=== PATIENT | male | born 1975 | race Caucasian/White ===

== ENCOUNTER 2017-01-29 15:13 | Emergency (ER) | payer OTHER ==
--- OUTSIDE RECORDS SUMMARY | 2017-01-29 16:11 | XMS REPORT | Continuity of Care Document ---
:1975 Author Organization [facility] ([facility]) Address [address] [place] [address] Phone [phone] Care Team Providers Name Role Phone Trista Israel Primary Care Provider [phone] Source Comments This disclosure is being made pursuant to the Care Everywhere program, applicable federal and state laws, and may not contain all informaitonavailable regarding this patient.[facility] ([facility]) Active Allergies and Adverse Reactions Allergen Noted Date Severity Reactions Comments Amlodipine-Benazepril 11/24/2011 Urticaria (Hives) Current Medications Prescription Sig. Disp. Refills Start Date End Date Status enalapril-hydrochlorthia Take 1 Tab by mouth Active zide 10-25 mg per tablet daily. CETIRIZINE Take by mouth Active HCL/PSEUDOEPHEDRINE daily. (ZYRTEC-D PO) traMADol 50 mg tablet Take 1 Tab by mouth 60 Tab 0 05/01/2013 Active every 6 hours as needed for Pain. Indications: PAIN LORazepam 2 mg tablet Take 2 mg by mouth Active at bedtime as needed. disulfiram (ANTABUSE) Take 250 mg by Active 250 mg tablet mouth daily. DULOXETINE HCL (CYMBALTA Take by mouth Active PO) daily. meloxicam 7.5 mg tablet Take 1 Tab by mouth 60 Tab 11 11/13/2013 Active 2 times daily. Indications: Pain Active Problems Problem Noted Date S/P shoulder surgery 11/15/2013 Poison brenda dermatitis 03/15/2013 Last Assessment & Plan: Patient reports a recent outbreak of poison brenda on his legs below the knees. He is being treated with prednisone taper, and has 10 more days before he is off completely. Surgery is scheduled for April 05, 2013. Shoulder pain, right 03/14/2013 Last Assessment & Plan: 80% of his right anterior shoulder pain was relieved with a injection of local anesthetic and corticosteroid into the biceps tendon sheath. Patient has had 4 prior surgeries and has a biceps tenodesis. We discussed biceps tenotomy with potential for cramping in the arm for 6-12 weeks after surgery, as was a Michael deformity of the upper arm. However there is usually a faster return to work compared with biceps tenodesis. Patient verbalizes understanding, reports he has been painful with his current biceps tenodesis, and would like to proceed with a biceps tenotomy. Depression 11/24/2011 Hypertension 11/24/2011 Osteoarthritis 11/24/2011 Sleep apnea 11/24/2011 Social History Tobacco Use Types Packs/Day Years Used Date Never Smoker Smokeless Tobacco: Never Used Tobacco Cessation:Counseling Given: Yes Comments:smokes marijuana daily: 3Gms per week Alcohol Use Drinks/Week oz/Week Comments Yes 20 Cans of beer 10.0 has been to rehab. not currently Last Filed Vital Signs Vital Sign Reading Time Taken Blood Pressure 139/90 04/05/2013 1:50 PM CDT Pulse 67 04/05/2013 5:55 AM CDT Temperature 36.4 C (97.5 F) 04/05/2013 12:00 PM CDT Respiratory Rate 16 04/05/2013 5:55 AM CDT Height 1.753 m (5' 9") 03/28/2013 1:06 PM CDT Weight 103.057 kg (227 lb 3.2 oz) 03/28/2013 1:06 PM CDT Body Mass Index 33.54 03/28/2013 1:06 PM CDT Oxygen Saturation 97% 04/05/2013 12:45 PM CDT Plan of Care Health Maintenance Due Date Last Done Comments Hepatitis B Vaccine (1 of 3 - Primary Series) 1975 Tdap Vaccine 1986 Lipid Disorder Screening 1993 MMR Vaccine 1993 Td Vaccine 1993 Influenza Vaccine: Seasonal (#1) 03/16/2016 Results from Last 3 Months Not on file
[2017-01-29] MEDS ORDERED: HYDROmorphone HCL 1 MG/ML DISP.SYRIN IV ONE (16:24)
[2017-01-29] MEDS ORDERED: HYDROmorphone HCL 1 MG/ML DISP.SYRIN ONE (16:35)
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
[2017-01-29] MEDS ORDERED: ONDANSETRON HCL/PF 2 MG/ML VIAL ONE (16:41)
[2017-01-29] MEDS ORDERED: ONDANSETRON HCL/PF 2 MG/ML VIAL IV ONE (16:42)
[2017-01-29] MEDS ORDERED: NORMAL SALINE 1,000 ML IV ONE (17:07)
[2017-01-29 17:20] LABS: Hemoglobin 16.4 gm/dL (13.5-18.0); Mean Cell Volume 87.5 fl (78-100); Mean Corpuscular Hemoglobin 31.2 pg (27-31); Mean Corpuscular Hgb Conc 35.7 g/dl (32-36); Mean Platelet Volume 9.2 fl (6.0-9.5); Neutrophil # 9.2 K/mm3 (1.3-6.0); Neutrophil % 78.7 % (42-75.0); Platelet Count 242 K/mm3 (150-450); Red Blood Count 5.26 M/mm3 (4.7-6.0); Red Cell Distribution Width 11.9 % (11.5-14.0); White Blood Count 11.7 K/mm3 (4.0-10.5)
[2017-01-29 17:36] LABS: Albumin * 4.4 gm/dl (3.4-5.0); BUN/Creatinine Ratio 11.6 (9.0-21.6); Bilirubin, Total 0.2 mg/dL (0.0-1.1); Ca. Corrected For Albumin 8.9 mg/dL (8.4-10.2); Calcium * 9.5 mg/dL (7.9-10.9); Carbon Dioxide 27.3 mmol/L (24-32.6); Potassium 4.3 mmol/L (3.4-4.6); Total Protein 8.2 gm/dL (6.2-8.2)
[2017-01-29 18:09] VITALS: BP 162/111
== END 2017-01-29 17:53 | disposition short-term general hospital (02) ==
LOC: ER 15:13
DX: S04.51XA Injury of facial nerve, right side, initial encounter (principal); S01.81XA Laceration without foreign body of other part of head, initial encounter; Z87.891 Personal history of nicotine dependence; Y00.XXXA Assault by blunt object, initial encounter; Y92.007 Garden or yard of unspecified non-institutional (private) residence as the place of occurrence of the external cause
CPT/HCPCS: 36415; 70486; 80053; 85025; 96374; 96375; 99285; J2405

== ENCOUNTER 2017-03-10 05:47 | Emergency (ER) | payer OTHER ==
[2017-03-10] MEDS ORDERED: KETOROLAC TROMETHAMINE 30 MG/ML VIAL IV ONE (06:15)
[2017-03-10] MEDS ORDERED: NORMAL SALINE 1,000 ML IV ONE (06:15)
[2017-03-10] MEDS ORDERED: KETOROLAC TROMETHAMINE 30 MG/ML VIAL ONE (06:22)
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
[2017-03-10 06:34] LABS: Hemoglobin 15.5 gm/dL (13.5-18.0); Mean Cell Volume 86.8 fl (78-100); Mean Corpuscular Hemoglobin 30.6 pg (27-31); Mean Corpuscular Hgb Conc 35.2 g/dl (32-36); Mean Platelet Volume 9.2 fl (6.0-9.5); Neutrophil # 5.3 K/mm3 (1.3-6.0); Neutrophil % 68.8 % (42-75.0); Platelet Count 208 K/mm3 (150-450); Red Blood Count 5.07 M/mm3 (4.7-6.0); Red Cell Distribution Width 12.4 % (11.5-14.0); White Blood Count 7.6 K/mm3 (4.0-10.5)
[2017-03-10 06:46] LABS: Albumin * 3.9 gm/dl (3.4-5.0); Anion Gap 17.3 mmol/L (6.8-13.8); BUN/Creatinine Ratio 16.7 (9.0-21.6); Bilirubin, Total 0.3 mg/dL (0.0-1.1); Calcium * 9.2 mg/dL (7.9-10.9); Carbon Dioxide 22.8 mmol/L (24-32.6); Potassium 4.1 mmol/L (3.4-4.6); Total Protein 7.2 gm/dL (6.2-8.2)
[2017-03-10 06:52] VITALS: BP 143/108
[2017-03-10 07:00] LABS: Urine Bilirubin Negative (NEGATIVE); Urine Blood Negative /ul (NEGATIVE); Urine Ketone Negative (NEGATIVE); Urine Nitrite Negative (NEGATIVE); Urine Protein Negative (NEGATIVE); Urine Specific Gravity 1.015 SP.GR. (1.005-1.030); Urine Urobilinogen Normal (NORMAL)
[2017-03-10 07:13] LABS: Urine Appearance Clear; Urine Bacteria None Seen; Urine Color Yellow; Urine RBC TRACE /hpf (0-5); Urine WBC TRACE /hpf (0-5)
[2017-03-10] MEDS ORDERED: ORPHENADRINE CITRATE 30 MG/ML VIAL IM ONE (07:24)
[2017-03-10] MEDS ORDERED: ORPHENADRINE CITRATE 30 MG/ML VIAL ONE (07:26)
== END 2017-03-10 07:54 | disposition home or self-care (01) ==
LOC: ER 05:47
DX: M62.830 Muscle spasm of back (principal); S39.012A Strain of muscle, fascia and tendon of lower back, initial encounter

== ENCOUNTER 2017-03-11 06:39 | Day surgery (SDC) | payer OTHER ==
[~2017-03-11 06:39] MED LIST: RINGER'S SOLUTION,LACTATED 1,000 ML IV PRN; ceFAZolin SODIUM 1 GM VIAL IV PRN
[2017-03-11 06:47] VITALS: BP 137/85
[2017-03-11] MEDS ORDERED: RINGER'S SOLUTION,LACTATED 1,000 ML IV ONE (07:03)
--- NOTE | 2017-03-11 08:13 | PN ---
Progess Note - Interim Narrative: 03/11/17 08:11 Upon questioning the patient in pre-op, he admitted to smoking marijuana 1.5 hrs prior to arrival in pre-op. This raised the question of ability to consent to anesthesia. After discussing the case with the nurse rolling machine operator, we made the decision to reschedule the case for next Wednesday. Patient was counseled on being NPO and avoiding any drug use prior to surgery. He understands and wishes to proceed with surgery next Wednesday. Akhil Perea MD
== END 2017-03-11 06:40 | disposition home or self-care (01) ==
LOC: AMB 06:39
PROVIDERS: ATTEND Orthopaedic Surgery
DX: Z53.8 Procedure and treatment not carried out for other reasons (principal)

== ENCOUNTER 2017-03-16 06:42 | Day surgery (SDC) | payer OTHER ==
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
--- NOTE | 2017-03-16 11:51 | OR ---
Anesthesia Procedure Note - Anesthesia Procedure Note Date of Service: 03/16/17 Narrative: Vital Signs - Last Taken Temp 36.5 C 03/16/17 11:10 Pulse 76 03/16/17 11:20 Resp 16 03/16/17 11:20 BP 153/96 03/16/17 11:20 Pulse Ox 96 03/16/17 11:20 O2 Oxygen Delivery Method Room Air 03/16/17 11:39 ANESTHESIA PROCEDURE NOTE Date of Procedure: 03/16/2017. Time of procedure: 0750. Performed by: Jeanmarie Moreno CRNA Coal Briquette Machine Operator: None. Preprocedure diagnosis: Left shoulder subscapularis tear. Post procedure diagnosis: Same. Procedure: Left ultrasound guided interacalene nerve block for postoperative analgesia. Indications: The patient is a 42 -year-old male. Findings: See below. Details of the procedure: The tissue over the intended target site was cleansed with ChloraPrep. 1 ml Lidocaine 1 % was infiltrated to the skin and subcutaneous tissue. Under sterile technique and ultrasound guidance a 21-gauge block needle was inserted to the left brachial plexus nerve bundle between the anterior scalene and the middle scalene muscle. 40 mL's of 0.5% bupivacaine plus epinephrine 1 200,000 was injected after negative aspiration for blood. Spread of local anesthetic around the brachial plexus was observed throughout the injection with ultrasound. The needle was removed intact. No complications were noted. The images were retained in the Hospital medical database . EBL: Minimal. Fluids: N/A. Specimen: N/A. Post procedure condition: The patient tolerated the procedure well. No complications were noted. Thank you for this consultation. Jeanmarie Moreno CRNA
[2017-03-16] MEDS ORDERED: RINGER'S SOLUTION,LACTATED 1,000 ML IV ONE (12:28)
[2017-03-16 13:45] VITALS: BP 140/101
== END 2017-03-16 06:43 | disposition home or self-care (01) ==
LOC: AMB 06:42
PROVIDERS: ATTEND Orthopaedic Surgery
PROC: 0RBK4ZZ Excision of Left Shoulder Joint, Percutaneous Endoscopic Approach (ICD-10-PCS; 2017-03-16)
PROC: 0LS40ZZ Reposition Left Upper Arm Tendon, Open Approach (ICD-10-PCS; 2017-03-16)
PROC: 0LM20ZZ Reattachment of Left Shoulder Tendon, Open Approach (ICD-10-PCS; 2017-03-16)
PROC: 3E0T3BZ Introduction of Anesthetic Agent into Peripheral Nerves and Plexi, Percutaneous Approach (ICD-10-PCS; 2017-03-16)
PROC: 0RJK4ZZ Inspection of Left Shoulder Joint, Percutaneous Endoscopic Approach (ICD-10-PCS; principal; 2017-03-16 08:00)
DX: M75.122 Complete rotator cuff tear or rupture of left shoulder, not specified as traumatic (principal); S43.432A Superior glenoid labrum lesion of left shoulder, initial encounter; S43.492A Other sprain of left shoulder joint, initial encounter; M66.822 Spontaneous rupture of other tendons, left upper arm; Z68.33 Body mass index [BMI] 33.0-33.9, adult

== ENCOUNTER 2017-04-10 15:30 | Emergency (ER) | payer OTHER ==
[2017-04-10] MEDS ORDERED: ALBUTEROL SULFATE 2.5 MG/0.5 ML VIAL.NEB IH ONE (16:12)
[2017-04-10] MEDS ORDERED: METHYLPREDNISOLONE SOD SUCC/PF 40 MG/ML VIAL ONE (16:12)
[2017-04-10] MEDS: METHYLPREDNISOLONE SOD SUCC/PF 40 MG/ML VIAL IM ONE (16:18)
[2017-04-10] MEDS: ALBUTEROL SULFATE 2.5 MG/0.5 ML VIAL.NEB IH ONE (16:19)
[2017-04-10 16:51] VITALS: BP 139/98
--- NOTE | 2017-04-10 16:52 | ERNOTE ---
Integumentary HPI - Narrative Date of Service: 04/10/17 - General Presenting Symptoms: insect bite, other - was mowing and got into hornets last and was bitten down the legs and on the face multiple times. In addition to that complaint patient reports that he has upper respiratory infection. Time Seen by Provider: 04/10/17 15:56 Source: patient - Immun/Allergies/Home Medications Immunizations: IMMUNIZATION HX Immunizations Up to Date Yes History of Influenza Vaccine No Hx Pneumococcal Vaccination No Allergies/Adverse Reactions: Allergies Allergy/AdvReac Type Severity Reaction Status Date / Time amlodipine besylate Allergy Intermediate ITCH, RASH Verified 04/10/17 15:47 [From Lotrel] benazepril HCl [From Lotrel] Allergy Intermediate ITCH, RASH Verified 04/10/17 15:47 lithium Allergy Intermediate boils Verified 04/10/17 15:47 Home Medications: HOME MEDICATIONS Lisinopril [Prinivil] 10 mg PO DAILY 01/29/17 [Last Taken 03/11/17 05:30] Azithromycin [Zithromax] 250 mg PO DAILY 5 Days #6 tablet 04/10/17 [Last Taken Unknown] Hydroxyzine HCl 25 mg PO QID PRN #20 tablet 04/10/17 [Last Taken Unknown] predniSONE [Prednisone] See Taper PO DAILY #20 tablet 04/10/17 [Last Taken Unknown] - History of Present Illness Narrative: Patient states that he was bitten by hornets after he ran over there and asked while mowing. Patient also has recurrent complaining of severe upper respiratory symptoms such cough congestion and scratchy throat. Upper respiratory symptoms started approximately 3 days ago. Date (Duration): 04/10/17 Time (Timing): 05:00 Location: Reports: lower extremity, feet, other - ankles bilaterally Quality: Reports: itching Severity: moderate Exposure: Reports: bee/wasp sting Modifying Factors - (Improves): Reports: nothing Modifying Factors - (Worsens): Reports: nothing Associated Symptoms: Reports: blisters, rash, hives, change in skin texture Prior Treatment: Reports: other - NONE Review of Systems - Narrative Narrative: Patient is a 42-year-old male exposed to multiple wasp bites lower extremity and face. Within in addition to his symptoms today states that he's had vomiting history of increasing upper respiratory infection. He has past medical history significant for his obstructive sleep apnea and he had a uvulectomy about 10 years prior. Patient states that he's had increased snoring and productive postnasal drip. His throat is [place] tingly in his concern for upper respiratory infection. He reports increased wheezing and increased work of breathing. - Review of Systems Constitutional: Present: malaise EYE: Present: no symptoms reported ENT: Present: no symptoms reported, throat swelling Respiratory: Present: shortness of breath, wheezing, other - RECENT URI Cardiology: Present: no symptoms reported Gastrointestinal/Abdominal: Present: no symptoms reported Genitourinary: Present: no symptoms reported Musculoskeletal: Present: no symptoms reported Skin: Present: other - multiple hives in the lower extremity all call last around the lower ankles. Also bilateral jaws were bit as well. Patient's areas are erythematous and urticaria noted bilateral ankles. Neurological: Present: no symptoms reported Endocrine: Present: no symptoms reported Hematologic/Lymphatic: Present: no symptoms reported Psych: Present: no symptoms reported All Other Systems: All systems neg except as marked - Narrative Narrative: All PAST medical history, past surgical history, social history, medications, allergies and family history were reviewed. - Patient's Past Medical History Patient History - Medical: Anxiety, Arthritis, Other Patient History - Cardiac/Respiratory: Hypertension Patient History - Cancer: No Hx of Cancer Patient History - Surgical Procedures: T & A, Other - uvulectomy. 10 years ago Patient History - Other: None - Family History Father Family History - Medical: Diabetes Type 2 Family History - Cardiac/Respiratory: Coronary Heart Disease, Hypertension Family History - Cancer: No pertinent family hx Mother Family History - Medical: Arthritis, Fibromyalgia Family History - Cardiac/Respiratory: No pertinent hx Family History - Cancer: No pertinent family hx - Social History Living Situations: spouse Abuse History: No History of abuse Psych History: Hx of Anxiety, Hx of Depression Smoking Status: Current some day smoker Have you smoked in the past 12 months: Yes - THC Alcohol Use: heavy Drug Use: marijuana - Immunizations Immunizations Up to Date: Yes Hx Pneumococcal Vaccination: No History of Influenza Vaccine: No Physical Exam - Physical Exam General Appearance: Present: wd/wn, alert, mild distress - secondary to wheezing. Head Exam: Present: normal inspection, no evidence of injury Eye Exam: Normal inspection: bilateral, PERRL: bilateral, EOMI: bilateral Ears, Nose, Throat: Present: sinus pain/drainage, pharyngeal erythema, other. Absent: tonsillar swelling - prior tonsillectomy Neck: Present: normal inspection, nontender Respiratory: Present: no respiratory distress, wheezing - right greater than left. Cardiovascular/Chest: Present: regular rate, rhythm, no murmur, normal peripheral pulses Peripheral Pulses: N=norm/S=strong/W=weak/B=bound/A=absent: Carotid (R): Normal , Carotid (L): Normal Gastrointestinal/Abdominal: Present: normal bowel sounds, nontender, nondistended, soft, no organomegaly Extremity Exam: Present: normal inspection, normal except - - left upper extremity in an immobilizer for recent surgery of the left rotator cuff. DTR: N=norm/NB=norm/brisk/A=abs/DD=dull/dimin/HC=hyperactive: Bicep (R): Normal , Bicep (L): Absent - immobilized, Tricep (R): Normal, Knee (L): Normal Skin Exam: Present: normal color, other - bilateral local ankle hives urticaria noted surrounding areas of bites from wasps ED Progress - Date and Time Seen: Date and Time: 04/10/17 16:19 Patient received Solu-Medrol 80 mg IM and a nebulizer treatment for the severe wheezing of his upper right lung. Patient is stable for discharge discussed need for him to follow up with his primary care doctor regarding the hives these hives are at risk for infection if he continues to scratch recommended an antihistamine Benadryl every 6 hours as needed and the topical Benadryl as well to keep from scratching. 04/10/17 16:35 Post nebulizer treatment and Solu-Medrol injection patient was stable his lungs demonstrated no evidence of wheezing he is currently stable for discharge he is probably needs some topical aloe on his lower extremity to avoid itching and causing further irritation of his skin he is currently ready for discharge. - Vital Signs Patient's Vital Signs:: I have reviewed the patient's vital signs. Vital Signs: Vital Signs 04/10/17 15:41 Temperature 37.2 C Pulse Rate 112 H Respiratory 14 Rate Blood Pressure 144/94 O2 Sat by Pulse 96 Oximetry - Progress/Reassessment Chief Complaint: Insect Bite Progress:: Improved Plan - Plan Plan: Patient will be stable for discharge. Departure Clinical Impression: Sting, wasp Qualifiers: Encounter type: initial encounter Injury intent: accidental or unintentional Qualified Code(s): T63.461A - Toxic effect of venom of wasps, accidental ( unintentional), initial encounter Upper respiratory infection Qualifiers: URI type: acute pharyngitis Pharyngitis/tonsillitis etiology: unspecified etiology Qualified Code(s): J02.9 - Acute pharyngitis, unspecified - Departure Disposition: Home self-care Condition: Good Instructions: Upper Respiratory Infection, Adult, [id number], Hives, Easy-to- Read, Bee, Wasp, or Hornet Sting Prescriptions: Azithromycin [Zithromax] 250 mg PO DAILY 5 Days #6 tablet Hydroxyzine HCl 25 mg PO QID PRN #20 tablet PRN Reason: Allergic Reaction predniSONE [Prednisone] See Taper PO DAILY #20 tablet
== END 2017-04-10 16:50 | disposition home or self-care (01) ==
LOC: ER 15:30
DX: T63.451A Toxic effect of venom of hornets, accidental (unintentional), initial encounter (principal); J02.9 Acute pharyngitis, unspecified; I10 Essential (primary) hypertension; F17.200 Nicotine dependence, unspecified, uncomplicated

== ENCOUNTER 2017-08-11 07:53 | Emergency (ER) | payer BC, OTHER ==
[2017-08-11 08:19] LABS: Hematocrit 46.7 % (42.0-52.0); Hemoglobin 16.6 gm/dL (13.5-18.0); Mean Cell Volume 88.3 fl (78-100); Mean Corpuscular Hemoglobin 31.4 pg (27-31); Mean Corpuscular Hgb Conc 35.5 g/dl (32-36); Mean Platelet Volume 9.5 fl (6.0-9.5); Neutrophil # 4.1 K/mm3 (1.3-6.0); Neutrophil % 69.8 % (42-75.0); Platelet Count 208 K/mm3 (150-450); Red Blood Count 5.29 M/mm3 (4.7-6.0); Red Cell Distribution Width 12.4 % (11.5-14.0); White Blood Count 5.8 K/mm3 (4.0-10.5)
[2017-08-11 08:24] LABS: Urine Bilirubin 1 mg/dl (NEGATIVE); Urine Blood Negative /ul (NEGATIVE); Urine Ketone 15 mg/dL (NEGATIVE); Urine Nitrite Negative (NEGATIVE); Urine Protein Negative (NEGATIVE); Urine Specific Gravity 1.025 SP.GR. (1.005-1.030); Urine Urobilinogen Normal (NORMAL)
[2017-08-11 08:32] LABS: Urine Appearance Clear; Urine Bacteria None Seen; Urine Color Yellow; Urine RBC None Seen /hpf (0-5); Urine WBC None Seen /hpf (0-5)
[2017-08-11 08:32] LABS: Albumin * 4.4 gm/dl (3.4-5.0); Anion Gap 13.2 mmol/L (6.8-13.8); BUN/Creatinine Ratio 10.9 (9.0-21.6); Bilirubin, Total 0.5 mg/dL (0.0-1.1); Ca. Corrected For Albumin 9.3 mg/dL (8.4-10.2); Calcium * 9.9 mg/dL (7.9-10.9); Potassium 4.2 mmol/L (3.4-4.6); Total Protein 8.2 gm/dL (6.2-8.2)
--- NOTE | 2017-08-11 08:43 | ERNOTE ---
Abdominal HPI - Narrative Date of Service: 08/11/17 - General Chief Complaint: Abdominal Pain Time Seen by Provider: 08/11/17 08:26 Source: patient, RN notes reviewed - Immun/Allergies/Home Medications Immunizatons: IMMUNIZATION HX Immunizations Up to Date Yes History of Influenza Vaccine No Hx Pneumococcal Vaccination No Allergies/Adverse Reactions: Allergies amlodipine besylate [From Lotrel] Allergy (Intermediate, Verified 08/11/17 08:05 ) ITCH, RASH benazepril HCl [From Lotrel] Allergy (Intermediate, Verified 08/11/17 08:05) ITCH, RASH lithium Allergy (Intermediate, Verified 08/11/17 08:05) boils Home Medications: HOME MEDICATIONS Lisinopril [Prinivil] 10 mg PO DAILY 01/29/17 [Last Taken 03/11/17 05:30] Hydroxyzine HCl 25 mg PO QID PRN #20 tablet 04/10/17 [Last Taken Unknown] DULoxetine HCL [Cymbalta] 20 mg PO DAILY 08/11/17 [Last Taken Unknown] Sucralfate [Carafate] 1 gm PO QID #30 tab 08/11/17 [Last Taken Unknown] - History of Present Illness Narrative: Chief complaint, PMH, MEDS AND PSH REVIEWED Date (Duration): 07/16/17 - 1 month duration of symptoms worsening now. Timing: getting worse Quality: moderate Activities at Onset: activity Modifying Factors - (Improves): Present: other - decreasing activity Associated Symptoms: Present: back pain - chronic pain in low back , diarrhea- mucous, nausea. Absent: diarrhea-gross blood, fever/chills Prior Abdominal Problems: Present: other - recent lft shoulder trauma Prior Treatment: Present: other - patient has not sought any other medical care except for emergency room today. Review of Systems - Narrative Narrative: Patient is here for evaluation of significant back pain patient states that it is an established patient of [facility].. He has a history of chronic abdominal pain for approximately a month started in the upper region seems to be getting worse activities such as movement is significantly hoarse since that this morning he went to walk to the mailbox time he comes back she had significant nausea and nearly vomited up. She denies any significant fevers or chills. He reports significant associated loose stools between 2-3 a day he denies any blood in the stool. He denies any exposures to anyone with diarrheal illness. Denies any recent use of IV antibiotics nor oral antibiotics. - Review of Systems Constitutional: Absent: fever, chills EYE: Present: no symptoms reported ENT: Present: no symptoms reported Respiratory: Present: no symptoms reported. Absent: shortness of breath, wheezing Cardiology: Present: no symptoms reported. Absent: chest pain, palpitations, syncope, edema Gastrointestinal/Abdominal: Present: no symptoms reported Genitourinary: Present: no symptoms reported Musculoskeletal: Present: back pain, muscle stiffness. Absent: joint pain, joint swelling Neurological: Present: pre-existing deficit - primarily in the upper extremities he's had bilateral shoulder surgeries. The left shoulder was operated on March 2017.. Absent: weakness, numbness Endocrine: Present: excessive sweating. Absent: increased thirst Hematologic/Lymphatic: Absent: easy bruising, easy bleeding Psych: Present: anxiety, depressed All Other Systems: All systems neg except as marked - Narrative Narrative: All history was reviewed allergies medications history listed below. - Patient's Past Medical History Patient History - Medical: Anxiety, Arthritis, Other Patient History - Cardiac/Respiratory: Hypertension, Other Patient History - Cancer: No Hx of Cancer Patient History - Surgical Procedures: T & A, Other Patient History - Other: None - Family History Father Family History - Medical: Diabetes Type 2 Family History - Cardiac/Respiratory: Coronary Heart Disease, Hypertension Family History - Cancer: No pertinent family hx Mother Family History - Medical: Arthritis, Fibromyalgia Family History - Cardiac/Respiratory: No pertinent hx Family History - Cancer: No pertinent family hx - Social History Living Situations: spouse Abuse History: No History of abuse Psych History: Hx of Anxiety, Hx of Depression Smoking Status: Never smoker Have you smoked in the past 12 months: No Do you dip or chew tobacco: No Alcohol Use: heavy Drug Use: marijuana - Immunizations Immunizations Up to Date: Yes Hx Pneumococcal Vaccination: No History of Influenza Vaccine: No Physical Exam - Physical Exam General Appearance: Present: wd/wn, alert Head Exam: Present: normal inspection, no evidence of injury Eye Exam: Normal inspection: bilateral, PERRL: bilateral, EOMI: bilateral Ears, Nose, Throat: Present: normal ENT inspection Neck: Present: normal inspection Respiratory: Present: no respiratory distress, normal breath sounds, no accessory muscle use Cardiovascular/Chest: Present: regular rate, rhythm, no murmur, normal peripheral pulses Gastrointestinal/Abdominal: Present: normal bowel sounds, nontender, nondistended, soft Rectal Exam: Present: deferred Male Genitals Exam: Present: normal genitalia, deferred Back Exam: Present: normal inspection, normal range of motion Extremity Exam: Present: normal inspection Neurological Exam: Present: alert, oriented, normal mood/affect, no motor/ sensory deficits DTR: N=norm/NB=norm/brisk/A=abs/DD=dull/dimin/HC=hyperactive: Bicep (R): Normal , Bicep (L): Normal, Tricep (R): Normal, Tricep (L): Normal, Knee (R): Normal, Knee (L): Normal Skin Exam: Present: normal color, warm/dry ED Progress - Date and Time Seen: Date and Time: 08/11/17 09:09 labs reviewed: Laboratory Tests 08/11/17 08/11/17 08:08 08:15 Sodium 136 Plasma Sodium 136 Potassium 4.2 Chloride 98 Carbon Dioxide 29.0 Anion Gap 13.2 BUN 15 Creatinine 1.38 Est GFR (Non-Af Amer) 60 BUN/Creatinine Ratio 10.9 Random Glucose 100 Calcium 9.9 Calcium Adj for Albumin 9.3 Total Bilirubin 0.5 AST 39 ALT 82 H Alkaline Phosphatase 99 Total Protein 8.2 Albumin 4.4 Amylase 51 Lipase 114 Urine Color Yellow Urine Appearance Clear Urine pH 6.0 Ur Specific [place] 1.025 Urine Protein Negative Urine Glucose (UA) Negative Urine Ketones 15 Urine Blood Negative Urine Nitrate Negative Urine Bilirubin 1 H Urine Ictotest Negative Urine Urobilinogen Normal Ur Leukocyte Esterase Negative Urine RBC None seen Urine WBC None seen Ur Epithelial Cells None seen Urine Bacteria None seen 08/11/17 10:00 pain level is down to 2/10 ready for discharge now - Results and Orders Patient's Lab Results:: I have reviewed the patient's lab results. Results and Orders: no abn findings - Vital Signs Patient's Vital Signs:: I have reviewed the patient's vital signs. Vital Signs: Vital Signs 08/11/17 07:59 Temperature 37.0 C Pulse Rate 109 H Respiratory 17 Rate Blood Pressure 150/109 O2 Sat by Pulse 98 Oximetry - EKG EKG: other - none - X-Ray X-Ray #1 X-Ray: abdomen Interpretation: Discd w/ radiologist X-ray Comments: Patient Name:MICHAEL AGRAWAL Date: 1975 Sex: M Order Number: [id number] Unique Exam ID: [id number] Exam Requested: [id number] - Abdomen Flat W/ Upright * Date Scheduled: 08-11-2017 08:08 AM Study Priority: Requesting Service: Requesting Physician: Christen Monaco Reason for Exam: Abdominal Pain Radiological Report : [place] [address] NAME: MICAHEL AGRAWAL : 1975 MR #: [id number] CC: Christen Monaco DO LOC: ER ADM DATE: X-RAY REPORT [id number] RAD/Abdomen Flat W/ Upright * Exam Date: 08/11/2017 08:08 Ordering Physician: Christen Monaco HISTORY: Abdominal Pain Additional history from technologist: Upper to mid abdominal pain for one month. Dysuria. Nausea and vomiting with exertion. TECHNIQUE: AP upright and supine views of the abdomen were obtained, total of 4 images. COMPARISONS: 03/10/2017 FINDINGS: Abdomen Flat W/ Upright *: No subdiaphragmatic free air. No abnormal dilation of large or small bowel. A few scattered air-fluid levels are noted within the colonic segments, in the right side as well as in the upper abdomen likely along the transverse colonic segment. No definite signs of nephrolithiasis or ureterolithiasis. Multiple pelvic calcifications are most likely phleboliths. Osseous structures are intact. Degenerative changes of the mid to lower lumbar spine noted. IMPRESSION: 1. Air-fluid levels within colonic segments as above, which can be compatible with colitis or other diarrheal disease. 2. No evidence for intestinal obstruction. Electronically signed by Jamie Levine M.D.. Jamie Levine MD Dict: 08/11/[id number] Typed: 08/11/17 0837/ 08/11/17 0839 08/11/17 0842 , Approved by: JAMIE LEVINE - Progress/Reassessment Chief Complaint: Abdominal Pain Progress:: Improved Progress Note-Subjective: 08/11/17 09:10 trial of GI cocktail with carafate and toradol for pain - Transfer of Care Expected Disposition: Discharge - patient stable for discharge. Plan - Plan Plan: Patient stable for discharge and will need follow up with his pcp Internal Medicine name Sil CHAPPELL. Discussed judicious use of carafate using over the counter painother medications. Side effects of carafate medication usage reviewed. Departure Clinical Impression: Colitis Abdominal pain Qualifiers: Abdominal location: upper abdomen, unspecified Qualified Code(s): R10.10 - Upper abdominal pain, unspecified - Departure Disposition: Home self-care Condition: Good Instructions: Clostridium Difficile Testing Additional Instructions: Please follow up with your doctor for C. diff testing Results to [facility] Prescriptions: Sucralfate [Carafate] 1 gm PO QID #30 tab
[2017-08-11] MEDS ORDERED: MAG HYDROX/ALUMINUM HYD/SIMETH 30 ML UDC PO ONE (09:05)
[2017-08-11] MEDS ORDERED: LIDOCAINE HCL 20 ML UDC PO ONE (09:05)
[2017-08-11] MEDS ORDERED: KETOROLAC TROMETHAMINE 30 MG/ML VIAL IM ONE (09:06)
[2017-08-11] MEDS ORDERED: KETOROLAC TROMETHAMINE 30 MG/ML VIAL ONE (09:07)
[2017-08-11] MEDS ORDERED: SUCRALFATE 1 G/10 ML UDC PO ONE (09:12)
[2017-08-11 09:54] VITALS: BP 130/101
== END 2017-08-11 10:22 | disposition home or self-care (01) ==
LOC: ER 07:53
DX: K52.9 Noninfective gastroenteritis and colitis, unspecified (principal); R10.10 Upper abdominal pain, unspecified

== ENCOUNTER 2018-08-17 11:41 | Observation (INO) | payer BC, OTHER ==
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
[2018-08-17] MEDS ORDERED: ONDANSETRON HCL/PF 2 MG/ML VIAL IV ONE (12:03)
[2018-08-17 12:16] LABS: Hematocrit 44.6 % (42.0-52.0); Hemoglobin 15.7 gm/dL (13.5-18.0); Mean Cell Volume 92.5 fl (78-100); Mean Corpuscular Hemoglobin 32.6 pg (27-31); Mean Corpuscular Hgb Conc 35.2 g/dl (32-36); Mean Platelet Volume 9.1 fl (8-11.3); Neutrophil # 4.7 K/mm3 (1.3-6.0); Neutrophil % 72.4 % (42-75.0); Platelet Count 143 K/mm3 (150-450); Red Blood Count 4.82 M/mm3 (4.7-6.0); Red Cell Distribution Width 11.9 % (11.5-14.0); White Blood Count 6.4 K/mm3 (4.0-10.5)
[2018-08-17 12:29] LABS: Albumin * 4.2 gm/dl (3.4-5.0); Anion Gap 5.7 mmol/L (6.8-13.8); BUN/Creatinine Ratio 12.9 (9.0-21.6); Bilirubin, Total 0.6 mg/dL (0.0-1.1); Ca. Corrected For Albumin 9.1 mg/dL (8.4-10.2); Calcium * 9.6 mg/dL (7.9-10.9); Carbon Dioxide 29.8 mmol/L (24-32.6); Potassium 3.5 mmol/L (3.4-4.6); Total Protein 7.7 gm/dL (6.2-8.2)
[2018-08-17] MEDS: MULTIVIT INFUSN,ADULT 4,VIT K 10 ML, THIAMINE HCL 100 MG in NORMAL SALINE 1,000 ML IV SCH ×2 (12:51→15:48)
[2018-08-17 13:55] LABS: Urine Bilirubin 1 mg/dl (NEGATIVE); Urine Blood Negative /ul (NEGATIVE); Urine Ketone 15 mg/dL (NEGATIVE); Urine Nitrite Negative (NEGATIVE); Urine Protein Negative (NEGATIVE); Urine Specific Gravity >=1.030 SP.GR. (1.005-1.030); Urine Urobilinogen Normal (NORMAL)
[2018-08-17 14:06] LABS: Cocaine Ur Negative (NEGATIVE); Urine Barbiturate Negative (NEGATIVE); Urine Benzodiazepines Negative (NEGATIVE); Urine Opiates Negative (NEGATIVE); Urine PCP Negative (NEGATIVE)
[2018-08-17 14:07] LABS: Urine THC Positive (NEGATIVE)
[2018-08-17 14:16] LABS: Urine Appearance Clear (CLEAR); Urine Bacteria TRACE; Urine Color Yellow; Urine Mucus Moderate - 2+; Urine RBC 0-5 /hpf (0-5); Urine WBC 0-5 /hpf (0-5)
[2018-08-17] MEDS ORDERED: ONDANSETRON HCL/PF 2 MG/ML VIAL IV PRN (20:04)
[2018-08-17] MEDS ORDERED: HYDROcodone/ACETAMINOPHEN 1 EACH TABLET PO PRN (20:06)
[2018-08-17] MEDS ORDERED: LISINOPRIL 10 MG PO SCH ×2 (20:15)
[2018-08-17] MEDS ORDERED: HYDROCHLOROTHIAZIDE 12.5 MG PO SCH ×2 (20:15)
[2018-08-17] MEDS: NORMAL SALINE 1,000 ML IV PRN ×2 (20:30→21:49)
[2018-08-17] MEDS ORDERED: LISINOPRIL 10 MG TABLET ONE (21:55)
[2018-08-17] MEDS ORDERED: LISINOPRIL 10 MG TABLET PO SCH (22:00)
[2018-08-17] MEDS ORDERED: HYDROCHLOROTHIAZIDE 25 MG TABLET PO SCH (22:00)
[2018-08-17] MEDS ORDERED: HYDROCHLOROTHIAZIDE 25 MG TABLET ONE (22:06)
[2018-08-17] MEDS: DULoxetine HCL 30 MG CAPSULE.SA PO SCH (22:11)
[2018-08-17] MEDS: LORazepam 2 MG/ML DISP.SYRIN IV SCH (22:13)
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
[2018-08-18] MEDS: LORazepam 2 MG/ML DISP.SYRIN IV SCH ×2 (04:15→09:04)
[2018-08-18] MEDS: NORMAL SALINE 1,000 ML IV PRN (04:18)
[2018-08-18] MEDS ORDERED: PANTOPRAZOLE SODIUM 40 MG TABLET.EC PO SCH (07:00)
[2018-08-18] MEDS: DULoxetine HCL 30 MG CAPSULE.SA PO SCH (09:03)
[2018-08-18 10:20] LABS: Hematocrit 43.8 % (42.0-52.0); Hemoglobin 15.7 gm/dL (13.5-18.0); Mean Cell Volume 92.2 fl (78-100); Mean Corpuscular Hemoglobin 33.1 pg (27-31); Mean Corpuscular Hgb Conc 35.8 g/dl (32-36); Mean Platelet Volume 9.3 fl (8-11.3); Neutrophil # 2.6 K/mm3 (1.3-6.0); Neutrophil % 57.3 % (42-75.0); Platelet Count 143 K/mm3 (150-450); Red Blood Count 4.75 M/mm3 (4.7-6.0); Red Cell Distribution Width 11.7 % (11.5-14.0); White Blood Count 4.5 K/mm3 (4.0-10.5)
[2018-08-18 10:42] LABS: Albumin * 3.9 gm/dl (3.4-5.0); Anion Gap 11.3 mmol/L (6.8-13.8); BUN/Creatinine Ratio 9.6 (9.0-21.6); Bilirubin, Total 0.8 mg/dL (0.0-1.1); Calcium * 9.2 mg/dL (7.9-10.9); Carbon Dioxide 26.4 mmol/L (24-32.6); Potassium 3.7 mmol/L (3.4-4.6); Total Protein 7.2 gm/dL (6.2-8.2)
--- NOTE | 2018-08-18 12:24 | DS ---
(1) Hyponatremia Problem: Resolved (2) Gastritis Problem: Acute Qualifiers: Gastritis type: alcoholic Chronicity: acute Gastritis bleeding: without bleeding Qualified Code(s): K29.20 - Alcoholic gastritis without bleeding Description of Stay: Olegario is a 43 yo male that was admitted with alcoholic gastritis and hyponatremia of 127. It was suspected that his hyponatremia was due to hypovolumia and he was treated with IV normal saline. Sodium did improve to normal and he felt better. Gastritis was treated with protonix. Educated that alcohol will cause gastritis and recommend to decrease his intake. He reports a history of severe alcohol withdrawal. To prevent this while inpatient he was given Ativan IV 1mg q6hr and he did well. There were no signs of alcohol withdrawal while in the hospital. He will be discharged to home and follow up with his primary care provider, Asia Steele. He reports being out of his blood pressure medication, cymbalta, and stomach medication at home. These were sent to his pharmacy. Nexium was sent to his pharmacy over protonix as he reports this has worked better for him in the past. Procedures Performed: none Results and Findings: Lab Pending Results 08/17/18 12:05: Troponin I Less than 0.017 08/17/18 12:10: WBC 6.4, RBC 4.82, Hgb 15.7, Hct 44.6, MCV 92.5, MCH 32.6 H, MCHC 35.2, RDW 11.9, Plt Count 143 L, MPV 9.1, Immature Gran % (Auto) 0.20, Immature Gran # (Auto) 0.01, Neutrophils % 72.4, Lymphocytes % 13.9 L, Monocytes % 12.6 H, Eosinophils % 0.0, Basophils % 0.9, Nucleated RBC % 0.0, Neutrophils # 4.7, Lymphocytes # 0.89 L, Monocytes # 0.8, Eosinophils # 0.0, Absolute Basophils 0.1 08/17/18 12:10: Sodium 127 L, Plasma Sodium 127 L, Potassium 3.5 D, Chloride 95 L, Carbon Dioxide 29.8, Anion Gap 5.7 L, BUN 13, Creatinine 1.01, Est GFR (Non- Af Amer) 86, BUN/Creatinine Ratio 12.9, Random Glucose 71, Calcium 9.6, Calcium Adj for Albumin 9.1, Total Bilirubin 0.6, AST 54 H, ALT 64, Alkaline Phosphatase 92, Total Protein 7.7, Albumin 4.2, Amylase 50, Lipase 83, Ethyl Alcohol 17.0 H 08/17/18 13:45: Urine Color Yellow, Urine Appearance Clear, Urine pH 6.0, Ur Specific [place] >=1.030, Urine Protein Negative, Urine Glucose (UA) Negative, Urine Ketones 15, Urine Blood Negative, Urine Nitrate Negative, Urine Bilirubin 1 H, Urine Ictotest Negative, Urine Urobilinogen Normal, Ur Leukocyte Esterase Negative, Urine RBC 0-5, Urine WBC 0-5, Ur Epithelial Cells 0-5, Urine Bacteria Trace, Urine Mucus Moderate - 2+ H, Urine Culture Comments No culture indicated 08/17/18 13:45: Urine Opiates Screen Negative, Barbiturate Screen Negative, Ur Phencyclidine Scrn Negative, Urine Amphetamine Negative, U Benzodiazepines Scrn Negative, Urine Cocaine Screen Negative, Urine Marijuana (THC) Positive H 08/18/18 10:05: WBC 4.5 D, RBC 4.75, Hgb 15.7, Hct 43.8, MCV 92.2, MCH 33.1 H, MCHC 35.8, RDW 11.7, Plt Count 143 L, MPV 9.3, Immature Gran % (Auto) 0.40, Immature Gran # (Auto) 0.02, Neutrophils % 57.3, Lymphocytes % 22.7, Monocytes % 18.2 H, Eosinophils % 0.7, Basophils % 0.7, Nucleated RBC % 0.0, Neutrophils # 2.6, Lymphocytes # 1.01 L, Monocytes # 0.8, Eosinophils # 0.0, Absolute Basophils 0.0 08/18/18 10:05: Sodium 133, Plasma Sodium 133, Potassium 3.7, Chloride 99, Carbon Dioxide 26.4, Anion Gap 11.3, BUN 9, Creatinine 0.94, Est GFR (Non-Af Amer) 93, BUN/Creatinine Ratio 9.6, Random Glucose 98 D, Calcium 9.2, Calcium Adj for Albumin 9.0, Total Bilirubin 0.8, AST 49 H, ALT 58, Alkaline Phosphatase 77, Total Protein 7.2, Albumin 3.9 Discharge Location: Home Disposition: Home self-care Condition: Good Discharge Activity: Activity as tolerated Discharge Diet: General/regular food Referrals: Asia Steele FNP [Primary Care Provider] - One Week Problem Oriented Discharge Instructions to Patient/Family: Hyponatremia, Alcohol Abuse and Nutrition Prescriptions (Any new or edited meds): Duloxetine HCl [Cymbalta] 60 mg PO DAILY #30 cap Esomeprazole Magnesium [Nexium] 40 mg PO DAILY #30 capsule. Lisinopril/Hydrochlorothiazide [Lisinopril-Hctz 10-12.5 mg Tab] 1 tab PO DAILY #30 tab Complete Home Medications List: Complete Home Medication List: Duloxetine HCl [Cymbalta] 60 mg PO DAILY #30 cap 08/18/18 Esomeprazole Magnesium [Nexium] 40 mg PO DAILY #30 capsule. 08/18/18 Lisinopril/Hydrochlorothiazide [Lisinopril-Hctz 10-12.5 mg Tab] 1 tab PO DAILY #30 tab 08/18/18
[2018-08-18 12:34] VITALS: BP 130/95
[2018-08-18] MEDS ORDERED: HYDROCHLOROTHIAZIDE 12.5 MG CAPSULE PO SCH (21:00)
== END 2018-08-18 13:13 | disposition home or self-care (01) ==
LOC: MS 11:41 → ER 11:41 → INTOOBSV 14:36 → OBSVTOIN 14:36 → MS 15:15
PROVIDERS: ADMIT Family Medicine; ATTEND Family Medicine
CPT/HCPCS: 36415; 74019; 74020; 80053; 80307; 80320; 81001; 82150; 83690; 84484; 85025; 93005; 96365; 96366; 96367; 96375; 99285; G0378; G0481; J2405

== ENCOUNTER 2018-11-22 07:12 | Observation (INO) ==
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
[2018-11-22] MEDS ORDERED: ONDANSETRON HCL/PF 2 MG/ML VIAL IV ONE (07:48)
[2018-11-22 07:55] LABS: Hematocrit 41.4 % (42.0-52.0); Hemoglobin 14.4 gm/dL (13.5-18.0); Mean Cell Volume 94.5 fl (78-100); Mean Corpuscular Hemoglobin 32.9 pg (27-31); Mean Corpuscular Hgb Conc 34.8 g/dl (32-36); Mean Platelet Volume 9.6 fl (8-11.3); Neutrophil # 2.2 K/mm3 (1.3-6.0); Neutrophil % 59.5 % (42-75.0); Platelet Count 174 K/mm3 (150-450); Red Blood Count 4.38 M/mm3 (4.7-6.0); Red Cell Distribution Width 12.2 % (11.5-14.0); White Blood Count 3.7 K/mm3 (4.0-10.5)
[2018-11-22 08:00] LABS: Prothrombin Time (Patient) 9.7 Seconds (9.1-10.7)
[2018-11-22] MEDS: MULTIVIT INFUSN,ADULT 4,VIT K 10 ML, THIAMINE HCL 100 MG in NORMAL SALINE 1,000 ML IV SCH ×3 (08:01→11:52)
[2018-11-22 08:03] LABS: INR 0.98 INR (0.92-1.08); Partial Thrombolplastin Time 22.5 Seconds (24-32)
[2018-11-22 08:09] LABS: ALT 68 U/L (19-67); AST 75 U/L (0-48); Albumin * 4.1 gm/dl (3.4-5.0); Alkaline Phosphatase * 78 U/L (50-170); Anion Gap 12.8 mmol/L (6.8-13.8); Blood Urea Nitrogen 12 mg/dL (6-23); Ca. Corrected For Albumin 9.1 mg/dL (8.4-10.2); Calcium * 9.5 mg/dL (7.9-10.9); Carbon Dioxide 28.7 mmol/L (24-32.6); Chloride 99 mmol/L (97-106); Glucose * 97 mg/dL (70-110); Potassium 3.5 mmol/L (3.4-4.6); Sodium 137 mmol/L (132-142); Total Protein 7.3 gm/dL (6.2-8.2)
[2018-11-22 08:10] LABS: Troponin I Less than 0.017 ng/mL (0.00-0.10)
[2018-11-22] MEDS ORDERED: LORazepam 2 MG/ML DISP.SYRIN IV PRN ×3 (11:39)
[2018-11-22] MEDS ORDERED: CLONIDINE HCL 0.1 MG TABLET PO ONE (11:41)
[2018-11-22] MEDS ORDERED: NON-FORMULARY 1 DOSE DOSE (Lisinopril/Hydrochlorothiazide [Lisinopril-Hctz 10-12.5 Mg Tab] PO SCH (11:45)
[2018-11-22] MEDS: LORazepam 1 MG TABLET PO SCH ×2 (11:51→17:44)
[2018-11-22] MEDS: FOLIC ACID 1 MG TABLET PO SCH (13:14)
[2018-11-22] MEDS: THIAMINE HCL 100 MG TABLET PO SCH (13:14)
[2018-11-22] MEDS: DULoxetine HCL 20 MG CAPSULE.SA PO SCH (13:14)
[2018-11-22] MEDS: HYDROCHLOROTHIAZIDE 12.5 MG CAPSULE PO SCH (13:15)
[2018-11-22] MEDS: LISINOPRIL 10 MG TABLET PO SCH (13:15)
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
[2018-11-23] MEDS: LORazepam 1 MG TABLET PO SCH ×4 (00:17→17:45)
[2018-11-23] MEDS ORDERED: PANTOPRAZOLE SODIUM 40 MG TABLET.EC PO SCH (07:00)
[2018-11-23] MEDS: HYDROCHLOROTHIAZIDE 12.5 MG CAPSULE PO SCH (08:01)
[2018-11-23] MEDS: DULoxetine HCL 20 MG CAPSULE.SA PO SCH (08:01)
[2018-11-23] MEDS: LISINOPRIL 10 MG TABLET PO SCH (08:02)
[2018-11-23] MEDS: THIAMINE HCL 100 MG TABLET PO SCH (08:02)
[2018-11-23] MEDS: FOLIC ACID 1 MG TABLET PO SCH (08:03)
--- NOTE | 2018-11-23 17:59 | DS ---
(1) Alcohol withdrawal Problem: Acute (2) Accelerated hypertension Problem: Acute Description of Stay: Gerry is a 43 yo male with history of alcohol abuse and history of alcohol withdrawal. He decided he was going to stop drinking alcohol but knew he had a history of bad detox. He presented to the ER with tachycardia, hypertension, and anxiety. He was admitted to observation and placed on CIWA protocol and scheduled ativan 1mg PO q6hr. He had IV ativan based on CIWA protocol. He did well and CIWA was mild. He will be discharged to home on an Ativan oral taper. Procedures Performed: none Results and Findings: Lab Pending Results 11/22/18 07:47: WBC 3.7 L, RBC 4.38 L, Hgb 14.4, Hct 41.4 L, MCV 94.5, MCH 32.9 H, MCHC 34.8, RDW 12.2, Plt Count 174, MPV 9.6, Immature Gran % (Auto) 0.30, Immature Gran # (Auto) 0.01, Neutrophils % 59.5, Lymphocytes % 20.8, Monocytes % 17.5 H, Eosinophils % 0.8, Basophils % 1.1 H, Nucleated RBC % 0.0, Neutrophils # 2.2, Lymphocytes # 0.76 L, Monocytes # 0.6, Eosinophils # 0.0, Absolute Basophils 0.0 11/22/18 07:47: PT 9.7, INR (Anticoag Therapy) 0.98, PTT (E[place]) 22.5 L 11/22/18 07:47: Sodium 137, Plasma Sodium 137, Potassium 3.5, Chloride 99, Carbon Dioxide 28.7, Anion Gap 12.8, BUN 12, Creatinine 0.86, Est GFR (Non-Af Amer) 103, BUN/Creatinine Ratio 14.0, Random Glucose 97, Calcium 9.5, Calcium Adj for Albumin 9.1, Total Bilirubin 1.0, AST 75 H, ALT 68 H, Alkaline Phosphatase 78, Troponin I Less than 0.017, Total Protein 7.3, Albumin 4.1, Ethyl Alcohol Less than 3.0 Discharge Location: Home Disposition: Home self-care Condition: Good Discharge Activity: Activity as tolerated Discharge Diet: General/regular food Referrals: Asia Steele FNP [Primary Care Provider] - One Week Problem Oriented Discharge Instructions to Patient/Family: Alcohol Withdrawal Prescriptions (Any new or edited meds): LORazepam [Ativan] 1 mg PO Q6H #40 tab Folic Acid 1 mg PO DAILY #30 tab Thiamine HCl [Vitamin B-1] 100 mg PO DAILY #30 tab Complete Home Medications List: Complete Home Medication List: duloxetine 60 mg capsule,delayed release 60 mg PO DAILY #30 cap 08/25/18 esomeprazole magnesium 40 mg capsule,delayed release 40 mg PO DAILY #30 capsule. 08/25/18 lisinopril 10 mg-hydrochlorothiazide 12.5 mg tablet 1 tab PO DAILY #30 tab 08/25/18 Folic Acid 1 mg PO DAILY #30 tab 11/23/18 LORazepam [Ativan] 1 mg PO Q6H #40 tab 11/23/18 Thiamine HCl [Vitamin B-1] 100 mg PO DAILY #30 tab 11/23/18
[2018-11-23 19:56] VITALS: BP 138/94
== END 2018-11-23 19:36 | disposition home or self-care (01) ==
LOC: ER 07:12 → MS 07:12
PROVIDERS: ADMIT Family Medicine; ATTEND Family Medicine
CPT/HCPCS: 36415; 71020; 71046; 80053; 80320; 84484; 85025; 85610; 85730; 93005; 96365; 96366; 96375; 99285; G0378; G0481; J2405

== ENCOUNTER 2019-09-27 15:52 | Inpatient (IN) ==
[2019-09-27] MEDS ORDERED: NORMAL SALINE 1,000 ML IV ONE (16:15)
[2019-09-27] MEDS ORDERED: ONDANSETRON HCL/PF 2 MG/ML VIAL IV ONE ×2 (16:15→18:48)
[2019-09-27 16:48] LABS: Hematocrit 44.9 % (42.0-52.0); Hemoglobin 15.8 gm/dL (13.5-18.0); Mean Cell Volume 92.6 fl (78-100); Mean Corpuscular Hemoglobin 32.6 pg (27-31); Mean Corpuscular Hgb Conc 35.2 g/dl (32-36); Mean Platelet Volume 9.3 fl (8-11.3); Neutrophil % 70.8 % (42-75.0); Platelet Count 244 K/mm3 (150-450); Red Blood Count 4.85 M/mm3 (4.7-6.0); Red Cell Distribution Width 11.9 % (11.5-14.0); White Blood Count 11.3 K/mm3 (4.0-10.5)
[2019-09-27 16:51] LABS: ALT 42 U/L (19-67); AST 57 U/L (0-48); Albumin * 4.2 gm/dl (3.4-5.0); Alkaline Phosphatase * 86 U/L (50-170); Anion Gap 25.2 mmol/L (6.8-13.8); BUN/Creatinine Ratio 15.1 (9.0-21.6); Bilirubin, Total 0.6 mg/dL (0.0-1.1); Blood Urea Nitrogen 18 mg/dL (6-23); Ca. Corrected For Albumin 9.9 mg/dL (8.4-10.2); Calcium * 10.4 mg/dL (7.9-10.9); Carbon Dioxide 16.3 mmol/L (24-32.6); Chloride 95 mmol/L (97-106); Glucose * 171 mg/dL (70-110); Sodium 134 mmol/L (132-142); Total Protein 7.5 gm/dL (6.2-8.2)
[2019-09-27 16:52] LABS: Troponin I Less than 0.017 ng/mL (0.00-0.10)
[2019-09-27 16:53] LABS: Potassium 2.5 mmol/L (3.4-4.6)
[2019-09-27] MEDS ORDERED: LORazepam 2 MG/ML DISP.SYRIN IV ONE (17:13)
[2019-09-27 17:22] LABS: Lipase 72 U/L (73-393)
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
[2019-09-27 17:56] LABS: Urine Bilirubin Negative (NEGATIVE); Urine Blood Negative /ul (NEGATIVE); Urine Ketone 50 mg/dL (NEGATIVE); Urine Nitrite Negative (NEGATIVE); Urine Protein Negative (NEGATIVE); Urine Specific Gravity >=1.030 SP.GR. (1.005-1.030); Urine Urobilinogen Normal (NORMAL)
[2019-09-27 18:02] LABS: Urine Appearance Clear (CLEAR); Urine Bacteria None Seen; Urine Color Yellow; Urine RBC None Seen /hpf (0-5); Urine WBC None Seen /hpf (0-5)
[2019-09-27 18:06] LABS: Cocaine Ur Negative (NEGATIVE); Urine Barbiturate Negative (NEGATIVE); Urine Opiates Negative (NEGATIVE); Urine PCP Negative (NEGATIVE)
[2019-09-27 18:08] LABS: Urine Benzodiazepines Positive (NEGATIVE); Urine THC Positive (NEGATIVE)
[2019-09-27] MEDS ORDERED: ROSUVASTATIN CALCIUM 20 MG TABLET PO STA (18:50)
[2019-09-27] MEDS ORDERED: LORazepam 2 MG/ML DISP.SYRIN IV PRN (18:54)
[2019-09-27] MEDS ORDERED: MULTIVIT INFUSN,ADULT 4,VIT K 10 ML, THIAMINE HCL 100 MG in NORMAL SALINE 1,000 ML IV ONE (18:54)
[2019-09-27] MEDS ORDERED: FLU VACC QS2019-20(6MOS UP)/PF 60 MCG/0.5 ML SYRINGE IM ONE (19:57)
[2019-09-27] MEDS: POTASSIUM CHLORIDE IN WATER 100 ML IV SCH ×4 (20:28→23:26)
[2019-09-27] MEDS: LORazepam 2 MG/ML DISP.SYRIN IV PRN (20:29)
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
[2019-09-28] MEDS: MULTIVIT INFUSN,ADULT 4,VIT K 10 ML, THIAMINE HCL 100 MG in NORMAL SALINE 1,000 ML IV SCH ×2 (02:39→11:06)
[2019-09-28] MEDS: ONDANSETRON HCL/PF 2 MG/ML VIAL IV PRN ×2 (04:57→09:49)
[2019-09-28 06:41] LABS: Hemoglobin A1C 5.3 % (4.00-6.0)
[2019-09-28 06:57] LABS: ALT 35 U/L (19-67); AST 42 U/L (0-48); Albumin * 3.4 gm/dl (3.4-5.0); Alkaline Phosphatase * 75 U/L (50-170); Anion Gap 13.2 mmol/L (6.8-13.8); BUN/Creatinine Ratio 12.5 (9.0-21.6); Bilirubin, Total 0.6 mg/dL (0.0-1.1); Blood Urea Nitrogen 12 mg/dL (6-23); Ca. Corrected For Albumin 8.5 mg/dL (8.4-10.2); Calcium * 8.3 mg/dL (7.9-10.9); Carbon Dioxide 25.9 mmol/L (24-32.6); Chloride 101 mmol/L (97-106); Glucose * 94 mg/dL (70-110); Potassium 3.1 mmol/L (3.4-4.6); Sodium 137 mmol/L (132-142); Total Protein 6.3 gm/dL (6.2-8.2)
[2019-09-28 06:59] LABS: Troponin I Less than 0.017 ng/mL (0.00-0.10)
[2019-09-28] MEDS ORDERED: POTASSIUM CHLORIDE 20 MEQ TABLET.SA PO ONE (08:15)
--- NOTE | 2019-09-28 08:20 | PN ---
Subjective - Date and Time Seen Date: 09/28/19 Time: 08:20 Subjective Narrative: Patient currently on banana bag and alcohol withdrawal protocol. CIWA Score is still high, (19). Patient is still hallucinating, but is has improved from admission, has a headache, tremors improve with administration of Ativan. Has nausea and decreased appetite. Complaining of severe reflux and intermittent chest pain. Patient desires to get sober, and get h is life on track. Lost his license due to DUI. Lost his job as a result of the DUI. Discussed he is not stable to go home. If we were to stop medication we were giving him he would possibly go into severe withdrawal which may result in . Patient understood. Advised will talk with case management about options for Rehab either inpatient or outpatient once he is stable for discharge. Patient requesting to be established with and started on antabuse. Objective - Review of Systems Generalized/Overall Review: Reports: Weakness, Chills, Diaphoresis. Denies: Fever EENTM: Reports: Blurred Vision Respiratory: Denies: Shortness of Breath Cardiac: Reports: Chest Pain, Palpitations. Denies: Edema Abdominal: Reports: Nausea, Abdominal Pain, Other - reflux. Denies: Vomiting, Hematemesis Genitourinary Symptoms: Reports: No Symptoms Reported Musculoskeletal Complaints: Reports: Back Pain, Muscle Pain. Denies: Joint Pain, Joint Swelling Neurological: Reports: Headache, Anxiety, Emotional Problems, Parasthesia, Tingling, Tremors, Weakness Skin: Reports: Dryness Endocrine: Reports: Intolerance to Heat - Vitals Vitals: Last Vital Signs Temp 36.6 C 09/28/19 06:00 Pulse 86 09/28/19 07:57 Resp 18 09/28/19 06:00 BP 174/106 H 09/28/19 06:00 Pulse Ox 100 09/28/19 06:00 - Abnormal Lab Findings Abnormal Lab Findings: Abnormal Lab Results 09/27/19 09/27/19 09/27/19 Range/Units 16:28 16:28 16:28 WBC 11.3 H (4.0-10.5) K/mm3 MCH 32.6 H (27-31) pg Immature Gran % (Auto) 0.50 H (0.001-0.429) % Immature Gran # (Auto) 0.06 H (0.000-0.0310) K/mm3 Lymphocytes % 19.2 L (20-51) % Neutrophils # 8.0 H (1.3-6.0) K/mm3 Potassium 2.5 L D (3.4-4.6) mmol/L Chloride 95 L (97-106) mmol/L Carbon Dioxide 16.3 L (24-32.6) mmol/L Anion Gap 25.2 H (6.8-13.8) mmol/L Random Glucose 171 H (70-110) mg/dL Lactic Acid, Venous (0.4-2.0) mmol/L AST 57 H (0-48) U/L Lipase 72 L (73-393) U/L Urine Amphetamine (NEGATIVE) U Benzodiazepines Scrn (NEGATIVE) Urine Marijuana (THC) (NEGATIVE) 09/27/19 09/27/19 09/28/19 Range/Units 17:50 20:10 06:22 WBC (4.0-10.5) K/mm3 MCH (27-31) pg Immature Gran % (Auto) (0.001-0.429) % Immature Gran # (Auto) (0.000-0.0310) K/mm3 Lymphocytes % (20-51) % Neutrophils # (1.3-6.0) K/mm3 Potassium 3.1 L D (3.4-4.6) mmol/L Chloride (97-106) mmol/L Carbon Dioxide (24-32.6) mmol/L Anion Gap (6.8-13.8) mmol/L Random Glucose (70-110) mg/dL Lactic Acid, Venous 4.6 H* (0.4-2.0) mmol/L AST (0-48) U/L Lipase (73-393) U/L Urine Amphetamine Positive H (NEGATIVE) U Benzodiazepines Scrn Positive H (NEGATIVE) Urine Marijuana (THC) Positive H (NEGATIVE) - EKG/Xray Findings EKG: other - sinus tachycardia EKG read: Reviewed by me XRAY: chest Interpretation: Reviewed by me - no acute cardiopulmonary process - Exam Constitutional: Present: Alert, Cooperative, Mild distress, Lethargic, Looks Older than stated age. Absent: Oriented x3 - oriented to person and place ENT Exam: Present: hearing grossly normal Neck: Present: non-tender, full range of motion, supple Breasts: Present: Exam deferred Respiratory: Present: lungs clear, normal breath sounds, no respiratory distress, No wheezing Cardiovascular/Chest: Present: normal peripheral pulses, no chest tenderness, no edema, no gallop, no JVD, no murmur, tachycardia Abdomen: Present: Normal bowel sounds, soft, tender - TPP, negative Newton sign - TTPof epigastric area and lower abdomen, which is improving /Rectal: Present: Exam deferred Extremity: Present: normal range of motion, non-tender, normal inspection Skin Exam: Present: normal color, warm/dry Neurologic: Present: alert, depressed affect Appearance: Present: appropriate insight, disheveled Eye contact: Present: cooperative, good eye contact, avoids eye contact Thoughts: Present: auditory hallucinations, tactile hallucinations, visual hallucinations Assessment/Plan Plan Narrative: Assessment/Plan 44 year old M admitted for 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 due to Alcohol withdrawal - CIWA score 20 - Continue alcohol withdrawal protocol - Zofran PRN for Nausea - Cont. withdrawal assessments Chest pain - Troponins normal - EKG reviewed cw sinus tachycardia - Continue t o evaluate Hypokalemia - Replete and check CMP Abdominal pain - Continue to monitor, no concern for acute abdomen Alcoholic gastritis - Start protonix and sucralfate Hypertension - Poorly controlled with tachycardia most likely from alcohol withdrawal - Started on metoprolol 25 mg PO BID - Continue to monitor Substance abuse - Counselled on substance abuse - Will provide patient with rehab options prior to discharge FEN: Banana bag, clear liquids ADA DVT PPX: SCD's CODE STATUS: FULL CODE Disposition: - Admit to inpatient -Continue to monitor for withdrawal symptoms - Continue to monitor Blood pressure - Problems/Diagnosis (1) 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 Problem: Acute (2) Alcohol withdrawal Problem: Acute Qualifiers: Complication of substance-induced condition: uncomplicated Qualified Code(s): F10.230 - Alcohol dependence with withdrawal, uncomplicated (3) Chest pain Problem: Acute Qualifiers: Chest pain type: unspecified Qualified Code(s): R07.9 - Chest pain, unspecified (4) Hypokalemia Problem: Acute (5) Abdominal pain Problem: Acute Qualifiers: Abdominal location: upper abdomen, unspecified Qualified Code(s): R10.10 - Upper abdominal pain, unspecified (6) Alcoholic gastritis Problem: Acute Qualifiers: Chronicity: chronic Gastritis bleeding: without bleeding Qualified Code(s): K29.20 - Alcoholic gastritis without bleeding (7) Hypertension Problem: Chronic Qualifiers: Hypertension type: essential hypertension Qualified Code(s): I10 - Essential (primary) hypertension (8) Substance abuse Problem: Chronic
[2019-09-28] MEDS: LORazepam 2 MG/ML DISP.SYRIN IV PRN ×6 (08:44→22:59)
[2019-09-28 08:56] LABS: Hematocrit 39.3 % (42.0-52.0); Hemoglobin 13.9 gm/dL (13.5-18.0); Mean Cell Volume 94.2 fl (78-100); Mean Corpuscular Hemoglobin 33.3 pg (27-31); Mean Corpuscular Hgb Conc 35.4 g/dl (32-36); Mean Platelet Volume 10.2 fl (8-11.3); Neutrophil # 5.4 K/mm3 (1.3-6.0); Neutrophil % 70.2 % (42-75.0); Platelet Count 198 K/mm3 (150-450); Red Blood Count 4.17 M/mm3 (4.7-6.0); Red Cell Distribution Width 12.2 % (11.5-14.0); White Blood Count 7.6 K/mm3 (4.0-10.5)
[2019-09-28] MEDS ORDERED: MULTIVIT INFUSN,ADULT 4,VIT K 10 ML, THIAMINE HCL 100 MG in NORMAL SALINE 1,000 ML IV SCH (09:00)
[2019-09-28] MEDS ORDERED: FLU VACC QS2019-20(6MOS UP)/PF 60 MCG/0.5 ML SYRINGE IM ONE (09:00)
[2019-09-28] MEDS ORDERED: METOPROLOL TARTRATE 25 MG TABLET PO SCH ×2 (09:00→21:00)
[2019-09-28] MEDS: THIAMINE HCL 100 MG TABLET PO SCH (09:52)
[2019-09-28] MEDS: SUCRALFATE 1 G TABLET PO SCH ×2 (09:55→20:06)
[2019-09-28] MEDS ORDERED: chlordiazePOXIDE HCL 10 MG CAPSULE PO SCH ×2 (12:00→13:00)
[2019-09-28] MEDS ORDERED: LABETALOL HCL 5 MG/ML VIAL IV ONE (12:05)
[2019-09-28] MEDS ORDERED: chlordiazePOXIDE HCL 25 MG CAPSULE PO SCH (17:00)
[2019-09-28] MEDS: PANTOPRAZOLE SODIUM 40 MG TABLET.EC PO SCH (20:06)
[2019-09-29] MEDS: LORazepam 2 MG/ML DISP.SYRIN IV PRN (01:37)
[2019-09-29 05:19] LABS: Hematocrit 40.8 % (42.0-52.0); Hemoglobin 14.1 gm/dL (13.5-18.0); Mean Corpuscular Hemoglobin 32.5 pg (27-31); Mean Corpuscular Hgb Conc 34.6 g/dl (32-36); Neutrophil # 4.8 K/mm3 (1.3-6.0); Neutrophil % 72.5 % (42-75.0); Platelet Count 178 K/mm3 (150-450); Red Blood Count 4.34 M/mm3 (4.7-6.0); Red Cell Distribution Width 11.9 % (11.5-14.0); White Blood Count 6.6 K/mm3 (4.0-10.5)
[2019-09-29 05:34] LABS: Albumin * 3.8 gm/dl (3.4-5.0); Anion Gap 14.6 mmol/L (6.8-13.8); BUN/Creatinine Ratio 5.1 (9.0-21.6); Bilirubin, Total 0.7 mg/dL (0.0-1.1); Ca. Corrected For Albumin 8.7 mg/dL (8.4-10.2); Calcium * 8.9 mg/dL (7.9-10.9); Carbon Dioxide 27.1 mmol/L (24-32.6); Potassium 3.7 mmol/L (3.4-4.6)
[2019-09-29] MEDS ORDERED: NORMAL SALINE 1,000 ML IV ONE (05:42)
[2019-09-29] MEDS ORDERED: LORazepam 2 MG/ML DISP.SYRIN IV PRN ×8 (05:52→19:45)
[2019-09-29] MEDS: PANTOPRAZOLE SODIUM 40 MG TABLET.EC PO SCH ×2 (08:00→20:45)
[2019-09-29] MEDS: THIAMINE HCL 100 MG TABLET PO SCH (08:00)
[2019-09-29] MEDS: SUCRALFATE 1 G TABLET PO SCH ×2 (08:00→20:45)
[2019-09-29] MEDS: MULTIVITAMINS 1 CAP CAPSULE PO SCH (08:01)
[2019-09-29] MEDS: FOLIC ACID 1 MG TABLET PO SCH (08:01)
--- NOTE | 2019-09-29 08:06 | PN ---
Subjective - Date and Time Seen Date: 09/29/19 Time: 08:00 Subjective Narrative: No acute events overnight. Received Ativan three times overnight. Patient tolerating po better. Nausea has improved. Vision is still foggy. Tremors still presents. Tactile hallucinations have decreased. Headache has resolved. No abdominal pain. Appetite improved. Urine output at baseline and had a BM. Discussed management of spacing out Ativan to wean off, and Increasing dose of PO Librium for better control since it is long acting. Will start anatabuse today since > 12 hours since his last drink. Will d/c in AM. Objective - Review of Systems Generalized/Overall Review: Reports: Diaphoresis. Denies: Chills, Fever EENTM: Reports: Other - dry eyes Respiratory: Denies: Cough, Shortness of Breath Cardiac: Denies: Chest Pain, Edema Abdominal: Reports: Nausea. Denies: Vomiting, Abdominal Pain Genitourinary Symptoms: Reports: Retention. Denies: Burning, Itching, Urgency, Frequency Musculoskeletal Complaints: Denies: Joint Pain, Back Pain, Joint Swelling Neurological: Reports: Headache, Anxiety, Tremors Skin: Reports: No Symptoms Reported Endocrine: Reports: Intolerance to Heat - Vitals Vitals: Last Vital Signs Temp 37.3 C 09/29/19 06:29 Pulse 72 09/29/19 06:29 Resp 12 09/29/19 06:29 BP 163/106 H 09/29/19 06:29 Pulse Ox 98 09/29/19 06:29 - Abnormal Lab Findings Abnormal Lab Findings: Abnormal Lab Results 09/28/19 09/29/19 09/29/19 Range/Units 06:22 05:05 05:05 RBC 4.17 L 4.34 L (4.7-6.0) M/mm3 Hct 39.3 L 40.8 L (42.0-52.0) % MCH 33.3 H 32.5 H (27-31) pg Lymphocytes % 17.5 L 15.1 L (20-51) % Monocytes % 11.3 H 11.1 H (0.0-9) % Lymphocytes # 1.33 L 0.99 L (1.5-3.5) k/mm3 Anion Gap 14.6 H (6.8-13.8) mmol/L BUN 5 L D (6-23) mg/dL BUN/Creatinine Ratio 5.1 L (9.0-21.6) - Exam Constitutional: Present: Alert, Oriented x3, Cooperative, No distress ENT Exam: Present: hearing grossly normal Neck: Present: full range of motion, supple, normal inspection Respiratory: Present: lungs clear, normal breath sounds, no respiratory distress, No rales, No wheezing Cardiovascular/Chest: Present: normal peripheral pulses, regular rate, rhythm, no chest tenderness, no edema, no gallop, no JVD, no murmur Abdomen: Present: Normal bowel sounds, soft, nontender Extremity: Present: normal range of motion, non-tender, normal inspection, no pedal edema, no calf tenderness, normal capillary refill Skin Exam: Present: normal color, warm/dry, other - moist palms Neurologic: Present: alert, normal mood/affect, oriented x 3 Appearance: Present: appropriate appearance Eye contact: Present: cooperative Thoughts: Present: normal thought pattern Assessment/Plan Plan Narrative: Assessment/Plan 44 year old M admitted for 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 due to Alcohol withdrawal - CIWA score 10 - Weaning off Ativan - Controlling symptoms with Librium 50 mg PO TID, since its long acting, anticipate better control of symptoms and smoother detox. - Zofran PRN for Nausea - Cont. withdrawal assessments - Continue Thiamine and Folate PO Daily - Received 3 banana bags, now on NS due to increased anion gap Hypertension - Better controlled - d/c beta rex, contraindicated currently with his CIWA score - Will start anti-hypertensive medication later on today or prior to discharge Substance abuse - Started on anta-abuse - Counselled on substance abuse - Will provide patient with rehab options prior to discharge Chest pain - Resolved Hypokalemia - Resolved Abdominal pain - Lipase trended - Clear liquids ADA tolerated Alcoholic gastritis - Continue protonix and sucralfate FEN: Banana bag, clear liquids ADA DVT PPX: SCD's CODE STATUS: FULL CODE Disposition: - Admit to inpatient -Continue to monitor for withdrawal symptoms - Continue to monitor Blood pressure - Anticipate to discharge tomorrow morning. - Follow up with PCP and establish with behavioral health. - Provide AA pamphlets. - Problems/Diagnosis (1) 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 Problem: Acute (2) Alcohol withdrawal Problem: Acute Qualifiers: Complication of substance-induced condition: uncomplicated Qualified Code(s): F10.230 - Alcohol dependence with withdrawal, uncomplicated (3) Chest pain Problem: Acute Qualifiers: Chest pain type: unspecified Qualified Code(s): R07.9 - Chest pain, unspecified (4) Hypokalemia Problem: Acute (5) Abdominal pain Problem: Acute Qualifiers: Abdominal location: upper abdomen, unspecified Qualified Code(s): R10.10 - Upper abdominal pain, unspecified (6) Alcoholic gastritis Problem: Acute Qualifiers: Chronicity: chronic Gastritis bleeding: without bleeding Qualified Code(s): K29.20 - Alcoholic gastritis without bleeding (7) Hypertension Problem: Chronic Qualifiers: Hypertension type: essential hypertension Qualified Code(s): I10 - Essential (primary) hypertension (8) Substance abuse Problem: Chronic
[2019-09-29] MEDS: chlordiazePOXIDE HCL 25 MG CAPSULE PO SCH ×3 (08:45→17:32)
[2019-09-29] MEDS: DISULFIRAM 250 MG TABLET PO SCH (08:45)
[2019-09-29] MEDS ORDERED: HYDROCHLOROTHIAZIDE 25 MG TABLET PO SCH (11:00)
[2019-09-29] MEDS: LOSARTAN POTASSIUM 50 MG TABLET PO SCH (17:32)
[2019-09-30 05:12] LABS: Hematocrit 46.1 % (42.0-52.0); Hemoglobin 16.5 gm/dL (13.5-18.0); Mean Cell Volume 92.8 fl (78-100); Mean Corpuscular Hemoglobin 33.2 pg (27-31); Mean Corpuscular Hgb Conc 35.8 g/dl (32-36); Mean Platelet Volume 9.4 fl (8-11.3); Neutrophil # 3.3 K/mm3 (1.3-6.0); Neutrophil % 59.9 % (42-75.0); Platelet Count 201 K/mm3 (150-450); Red Blood Count 4.97 M/mm3 (4.7-6.0); Red Cell Distribution Width 11.9 % (11.5-14.0); White Blood Count 5.5 K/mm3 (4.0-10.5)
[2019-09-30 05:17] LABS: Albumin * 3.8 gm/dl (3.4-5.0); Anion Gap 6.8 mmol/L (6.8-13.8); BUN/Creatinine Ratio 10.2 (9.0-21.6); Bilirubin, Total 0.6 mg/dL (0.0-1.1); Ca. Corrected For Albumin 9.6 mg/dL (8.4-10.2); Calcium * 9.8 mg/dL (7.9-10.9); Carbon Dioxide 24.5 mmol/L (24-32.6); Potassium 3.3 mmol/L (3.4-4.6); Total Protein 7.6 gm/dL (6.2-8.2)
[2019-09-30] MEDS: THIAMINE HCL 100 MG TABLET PO SCH (08:18)
[2019-09-30] MEDS: FOLIC ACID 1 MG TABLET PO SCH (08:18)
[2019-09-30] MEDS: PANTOPRAZOLE SODIUM 40 MG TABLET.EC PO SCH (08:18)
[2019-09-30] MEDS: MULTIVITAMINS 1 CAP CAPSULE PO SCH (08:18)
[2019-09-30] MEDS: DISULFIRAM 250 MG TABLET PO SCH (08:18)
[2019-09-30] MEDS: SUCRALFATE 1 G TABLET PO SCH (08:19)
[2019-09-30] MEDS: LOSARTAN POTASSIUM 50 MG TABLET PO SCH (08:19)
[2019-09-30] MEDS: chlordiazePOXIDE HCL 25 MG CAPSULE PO SCH ×2 (08:21→13:12)
[2019-09-30] MEDS ORDERED: POTASSIUM CHLORIDE 40 MEQ in NORMAL SALINE 1,000 ML IV SCH (08:45)
[2019-09-30] MEDS ORDERED: POTASSIUM CHLORIDE 10 MEQ TABLET.SA PO SCH (09:15)
[2019-09-30 09:51] LABS: Albumin * 3.7 gm/dl (3.4-5.0); Anion Gap 17.1 mmol/L (6.8-13.8); Bilirubin, Total 0.6 mg/dL (0.0-1.1); Ca. Corrected For Albumin 9.7 mg/dL (8.4-10.2); Calcium * 9.8 mg/dL (7.9-10.9); Carbon Dioxide 23.7 mmol/L (24-32.6); Potassium 3.8 mmol/L (3.4-4.6); Total Protein 7.4 gm/dL (6.2-8.2)
--- NOTE | 2019-09-30 13:52 | DS ---
(1) 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 Problem: Acute (2) Alcohol withdrawal Problem: Acute Qualifiers: Complication of substance-induced condition: with perceptual disturbance Qualified Code(s): F10.232 - Alcohol dependence with withdrawal with perceptual disturbance (3) Chest pain Problem: Acute Qualifiers: Chest pain type: unspecified Qualified Code(s): R07.9 - Chest pain, unspecified (4) Hypokalemia Problem: Acute (5) Abdominal pain Problem: Resolved Qualifiers: Abdominal location: upper abdomen, unspecified Qualified Code(s): R10.10 - Upper abdominal pain, unspecified (6) Alcoholic gastritis Problem: Acute Qualifiers: Chronicity: acute Gastritis bleeding: without bleeding Qualified Code(s): K29.20 - Alcoholic gastritis without bleeding (7) Hypertension Problem: Chronic Qualifiers: Hypertension type: other secondary hypertension Qualified Code(s): I15.8 - Other secondary hypertension (8) Substance abuse Problem: Chronic Date of Discharge:: 09/30/19 Hospital Course: 44-year-old male with past medical history of hypertension and alcohol abuse admitted for alcohol abuse with induced psychosis and delirium due to alcohol withdrawal, alcoholic gastritis, chest pain and hypertensive urgency. Patient presented to the ER in acute withdrawal from alcohol abuse. Approximately drinking half a gallon to 1 gallon of vodka in addition to beer for a couple of months. Patient tried to quit cold turkey however he was gettin g very sick. Patient presented to the ER due to chest pain, abdominal pain and intractable nausea and nonbloody nonbilious emesis. On arrival to the ER patient was hypertensive and tachycardic most likely secondary to acute alcohol withdrawal. Labs were significant for mild leukocytosis with left shift, lactic acidosis of greater than 4, increased lipase and increased anion gap. Cardiac work-up ruled out acute myocardial infarction. Drug screen was positive for amphetamines, benzos, marijuana. Patient had elevated blood alcohol levels. CIWA scores on admission were 20. Started on alcohol withdrawal protocol with Ativan, added Librium for better control. Librium dose titrated up slowly for better control of withdrawal symptoms. CIWA scores trended down during hospitalization to 0 prior to discharge. Lactic trended down with hydration. Lactic acidosis was most likely secondary to acute alcohol withdrawal and less likely secondary to infection. Leukocytosis resolved during hospitalization. Lipase 10 trended down. Nausea treated with Zofran as needed which resolved within 24 hours of admission. Treated for alcoholic gastritis with Protonix and Carafate. Started on clear l iquid diet and once lipase had trended down, diet was advanced and patient tolerated it well. Blood pressure was difficult to control most likely due to withdrawal symptoms, once CIWA scores were trended down patient started on hydrochlorothiazide and losartan and responded well. Started Antabuse once patient has been alcohol free for greater than 24 hours. Will discharge with prescription for anti-abuse of 500 mg for 12 days. At follow-up visit with primary care provider will continue with Antabuse maintenance dose of 250 mg. Counseled on abstinence from alcohol and joining support groups such as alcoholic Anonymous. Advised to follow-up with primary care provider within 1 week. Advised will taper off Librium over 5 days. Will discharge with medication for blood pressure. We will discharge medication for alcoholic gastritis, Protonix and Carafate. At follow-up visit with PCP most likely recommend EGD. We will discharge with thiamine and folate supplements for 1 month. Advised will refer to behavioral health to address bipolar disorder and resume medications. Procedures Performed: none List Procedures: Alcohol abuse with induced psychosis and delirium due to withdrawal Alcoholic gastritis Substance abuse Poorly controlled hypertension Care Plan Goals: Follow-up with PCP for following: Blood pressure management Refer to general surgery for EGD Established with behavioral health to address bipolar disorder and resume medications. Establish with support group for substance abuse Established with psychotherapy Plan of Treatment: Wean off Librium, with alprazolam extended release over 5 days Continue ant-abuse 500 mg for 12 more days and decrease to 150 mg as maintenance dose. Continue with blood pressure medication of losartan/hydrochlorothiazide daily in the morning Continue with folate and thiamine supplements for 1 month Continue with medications for alcoholic gastritis with Protonix and Carafate Health Concerns: Substance abuse and concern for relapse Assessment: Alcohol abuse with induced psychosis and delirium due to withdrawal. Alcoholic gastritis Hypertension Substance abuse Results and Findings: Lab Pending Results 09/27/19 16:28: WBC 11.3 H, RBC 4.85, Hgb 15.8, Hct 44.9, MCV 92.6, MCH 32.6 H, MCHC 35.2, RDW 11.9, Plt Count 244, MPV 9.3, Immature Gran % (Auto) 0.50 H, Immature Gran # (Auto) 0.06 H, Neutrophils % 70.8, Lymphocytes % 19.2 L, Monocytes % 8.9, Eosinophils % 0.1, Basophils % 0.5, Nucleated RBC % 0.0, Neutrophils # 8.0 H, Lymphocytes # 2.18, Monocytes # 1.0, Eosinophils # 0.0, Absolute Basophils 0.1 09/27/19 16:28: Sodium 134, Plasma Sodium 135, Potassium 2.5 L D, Chloride 95 L, Carbon Dioxide 16.3 L, Anion Gap 25.2 H, BUN 18 D, Creatinine 1.19, Est GFR (Non-Af Amer) 71 D, BUN/Creatinine Ratio 15.1, Random Glucose 171 H, Calcium 10.4, Calcium Adj for Albumin 9.9, Total Bilirubin 0.6, AST 57 H, ALT 42, Alkaline Phosphatase 86, Troponin I Less than 0.017, Total Protein 7.5, Albumin 4.2 09/27/19 16:28: Lipase 72 L, Ethyl Alcohol Less than 3.0 09/27/19 16:28: Magnesium 1.7 09/27/19 17:50: Urine Color Yellow, Urine Appearance Clear, Urine pH 6.0, Ur Specific [place] >=1.030, Urine Protein Negative, Urine Glucose (UA) Negative, Urine Ketones 50, Urine Blood Negative, Urine Nitrate Negative, Urine Bilirubin Negative, Urine Urobilinogen Normal, Ur Leukocyte Esterase Negative, Urine RBC None seen, Urine WBC None seen, Ur Epithelial Cells 0-5, Urine Bacteria None seen, Urine Culture Comments No culture indicated 09/27/19 17:50: Urine Opiates Screen Negative, Barbiturate Screen Negative, Ur Phencyclidine Scrn Negative, Urine Amphetamine Positive H, U Benzodiazepines Scrn Positive H, Urine Cocaine Screen Negative, Urine Marijuana (THC) Positive H 09/27/19 20:10: Lactic Acid, Venous 4.6 H* 09/27/19 22:36: Troponin I Less than 0.017 09/28/19 06:22: Sodium 137, Plasma Sodium 137, Potassium 3.1 L D, Chloride 101, Carbon Dioxide 25.9, Anion Gap 13.2, BUN 12, Creatinine 0.96, Est GFR (Non-Af Amer) 90 D, BUN/Creatinine Ratio 12.5, Random Glucose 94 D, Calcium 8.3, Calcium Adj for Albumin 8.5, Total Bilirubin 0.6, AST 42, ALT 35, Alkaline Phosphatase 75, Troponin I Less than 0.017, Total Protein 6.3, Albumin 3.4 09/28/19 06:22: Mean Blood Glucose 90, Hemoglobin A1c 5.3 09/28/19 06:22: Lactic Acid, Venous 1.4 09/28/19 06:22: WBC 7.6 D, RBC 4.17 L, Hgb 13.9, Hct 39.3 L, MCV 94.2, MCH 33.3 H, MCHC 35.4, RDW 12.2, Plt Count 198, MPV 10.2, Immature Gran % (Auto) 0.40, Immature Gran # (Auto) 0.03, Neutrophils % 70.2, Lymphocytes % 17.5 L, Monocytes % 11.3 H, Eosinophils % 0.3, Basophils % 0.3, Nucleated RBC % 0.0, Neutrophils # 5.4, Lymphocytes # 1.33 L, Monocytes # 0.9, Eosinophils # 0.0, Absolute Basophils 0.0 09/29/19 05:05: Sodium 137, Plasma Sodium 137, Potassium 3.7, Chloride 99, Carbon Dioxide 27.1, Anion Gap 14.6 H, BUN 5 L D, Creatinine 0.99, Est GFR (Non- Af Amer) 87, BUN/Creatinine Ratio 5.1 L, Random Glucose 86, Calcium 8.9, Calcium Adj for Albumin 8.7, Total Bilirubin 0.7, AST 45, ALT 36, Alkaline Phosphatase 79, Total Protein 7.0, Albumin 3.8, Amylase 39, Lipase 92 09/29/19 05:05: WBC 6.6, RBC 4.34 L, Hgb 14.1, Hct 40.8 L, MCV 94.0, MCH 32.5 H, MCHC 34.6, RDW 11.9, Plt Count 178, MPV 9.0, Immature Gran % (Auto) 0.30, Immature Gran # (Auto) 0.02, Neutrophils % 72.5, Lymphocytes % 15.1 L, Monocytes % 11.1 H, Eosinophils % 0.5, Basophils % 0.5, Nucleated RBC % 0.0, Neutrophils # 4.8, Lymphocytes # 0.99 L, Monocytes # 0.7, Eosinophils # 0.0, Absolute Basophils 0.0 09/30/19 04:57: WBC 5.5, RBC 4.97, Hgb 16.5, Hct 46.1, MCV 92.8, MCH 33.2 H, MCHC 35.8, RDW 11.9, Plt Count 201, MPV 9.4, Immature Gran % (Auto) 0.90 H, Im mature Gran # (Auto) 0.05 H, Neutrophils % 59.9, Lymphocytes % 23.0, Monocytes % 13.3 H, Eosinophils % 2.0, Basophils % 0.9, Nucleated RBC % 0.0, Neutrophils # 3.3, Lymphocytes # 1.26 L, Monocytes # 0.7, Eosinophils # 0.1, Absolute Basophils 0.1 09/30/19 04:57: Sodium 121 L, Plasma Sodium 121 L, Potassium 3.3 L, Chloride 93 L, Carbon Dioxide 24.5, Anion Gap 6.8, BUN 11 D, Creatinine 1.08, Est GFR (Non- Af Amer) 79, BUN/Creatinine Ratio 10.2, Random Glucose 106, Calcium 9.8, Calcium Adj for Albumin 9.6, Total Bilirubin 0.6, AST 46, ALT 39, Alkaline Phosphatase 77, Total Protein 7.6, Albumin 3.8 09/30/19 09:29: Sodium 137, Plasma Sodium 137, Potassium 3.8, Chloride 100, Carbon Dioxide 23.7 L, Anion Gap 17.1 H, BUN 13, Creatinine 1.08, Est GFR (Non- Af Amer) 79, BUN/Creatinine Ratio 12.0, Random Glucose 99, Calcium 9.8, Calcium Adj for Albumin 9.7, Total Bilirubin 0.6, AST 51 H, ALT 40, Alkaline Phosphatase 69, Total Protein 7.4, Albumin 3.7 Discharge Location: Home Disposition: Home self-care Condition: Stable Discharge Activity: Activity as tolerated Discharge Diet: General/regular food Referrals: Fernando Luther MD [Primary Care Provider] - One Week (Follow-up for hypertension and substance abuse Decrease dose of ant-abuse 150 mg for maintenance dose after 2 weeks of completing 500 mg Establish care with behavioral health to address bipolar disorder and resume medication Follow-up on joining support groups such as alcoholic anonymous) Problem Oriented Discharge Instructions to Patient/Family: Alcohol Withdrawal, Substance Use Disorder, Finding Treatment for Addiction, Alcohol Withdrawal, [id number] Additional Patient Instructions (free text): [facility] will call you on [facility] with Dr. Luther follow up appointment. Prescriptions (Any new or edited meds): Alprazolam [Alprazolam ER] 0.5 mg PO DAILY 5 Days #9 tab.er.24h Disulfiram [Antabuse] 500 mg PO DAILY 12 Days #12 tab Transmission Status: Pending to [facility] #[id number] Hydrochlorothiazide [Hydrodiuril] 25 mg PO QAM #30 tab Transmission Status: Pending to [facility] #[id number] Complete Home Medications List: Complete Home Medication List: Alprazolam [Alprazolam ER] 0.5 mg PO HS 5 Days #9 tab.er.24h 09/30/19 Disulfiram [Antabuse] 500 mg PO DAILY 12 Days #12 tab 09/30/19 Folic Acid 1 mg PO DAILY #30 tab 09/30/19 Losartan/Hydrochlorothiazide [Losartan-Hctz 100-25 mg Tab] 1 ea PO QAM #30 tab 09/30/19 Pantoprazole Sodium [Protonix] 40 mg PO DAILY #30 tablet. 09/30/19 Potassium Chloride [Klor-Con 10] 10 meq PO DAILY #30 tablet.sa 09/30/19 Sucralfate [Carafate] 1 g PO BID #60 tab 09/30/19 Thiamine HCl [Vitamin B-1] 100 mg PO DAILY #30 tab 09/30/19
[2019-09-30 15:00] VITALS: BP 125/81
== END 2019-09-30 15:00 | disposition home or self-care (01) | DRG 897 ==
LOC: MS 15:52 → ER 15:52 → MS 19:15
PROVIDERS: ADMIT Family Medicine; ATTEND Family Medicine
DX: K29.20 Alcoholic gastritis without bleeding; F10.230 Alcohol dependence with withdrawal, uncomplicated; R07.9 Chest pain, unspecified; E87.1 Hypo-osmolality and hyponatremia; Z87.891 Personal history of nicotine dependence; F10.232 Alcohol dependence with withdrawal with perceptual disturbance; F12.20 Cannabis dependence, uncomplicated; E87.6 Hypokalemia; F15.10 Other stimulant abuse, uncomplicated; F31.81 Bipolar II disorder; F13.20 Sedative, hypnotic or anxiolytic dependence, uncomplicated; Z23 Encounter for immunization; I10 Essential (primary) hypertension
CPT/HCPCS: 36415; 71010; 71045; 80053; 80307; 81001; 82150; 83036; 83605; 83690; 83735; 83930; 84484; 85025; 90686; 93005; 96361; 96365; 96366; 96375; 96376; 99284; 99285; G0378; J2405